=== PATIENT | male | born 1970 | race Caucasian/White ===

== ENCOUNTER 2018-02-11 09:27 | Emergency (ER) | payer BC ==
[~2018-02-11] VITALS: Ht 172.7 cm; Wt 79.4 kg
[2018-02-11 09:35] VITALS: BP 164/114
[2018-02-11] MEDS ORDERED: ATORVASTATIN CA40 MG PO (09:46)
[2018-02-11] MEDS ORDERED: ERYTHROMYCIN E3.5 G2 OPHTHALMIC (09:50)
[2018-02-11] MEDS ORDERED: PREDNISONE 20 M20 MG PO (09:50)
== END 2018-02-11 10:12 | disposition home or self-care (01) ==
LOC: ER 09:27
DX: H00.12 Chalazion right lower eyelid (principal); F17.210 Nicotine dependence, cigarettes, uncomplicated